=== PATIENT | male | born 1990 | race Caucasian/White ===

== ENCOUNTER 2018-01-21 21:59 | Emergency (ER) | payer SELFPAY ==
[2018-01-21] MEDS ORDERED: NS 0.9% 1000 ML* 1,000 ML IV ONE (23:13)
[2018-01-21] MEDS ORDERED: Albuterol/Ipratropium NEB.SOL* Albuterol 2.5 MG/Ipratropium 0.5 MG 3 ML INH ONE (23:15)
[2018-01-21] MEDS ORDERED: Ketorolac INJ* 30 MG/ML 1 ML VIAL IV PUSH ONE (23:15)
[2018-01-21 23:38] LABS: ABS Basophils 0.1 10^3/ul (0-0.2); ABS Eosinophils 0.2 10^3/ul (0-0.6); ABS Lymphocytes 2.9 10^3/ul (1.0-4.8); ABS Monocytes 0.9 10^3/ul (0-0.8); ABS Neutrophils 5.8 10^3/ul (1.5-7.7); ABS Nucleated RBC 0 10^3/ul; Eosinophil % 1.5 % (0-6); Hematocrit 45 % (42-52); Hemoglobin 15.2 g/dl (14.0-18.0); Lymphocyte % 29.1 % (25-47); Mean Corpuscular HGB Conc 34 g/dl (31-36); Mean Corpuscular Hemoglobin 29 pg (27-31); Mean Corpuscular Volume 86 fL (80-94); Mean Platelet Volume 7.4 um3 (7.4-10.4); Nucleated Red Blood Cells % 0.1; Platelet Count 243 10^3/ul (150-450); Red Cell Distribution Width 14 % (10.5-15); White Blood Count 9.9 10^3/ul (3.5-10.8)
[2018-01-22] LABS: EGFR Non-African American 112.7 (>60)
[2018-01-22] MEDS ORDERED: predniSONE TAB* 20 MG PO ONE (00:37)
[2018-01-22] MEDS ORDERED: Famotidine TAB* 20 MG PO ONE (00:37)
--- NOTE | 2018-01-22 01:13 | ED ---
Myrtle Amado Emily, scribed for Brenton Pena MD on 01/21/18 at 2315 . HPI Chest Pain - HPI Summary HPI Summary: This patient is a 27 year old M presenting to [facility] with a chief complaint of stabbing left-sided CP radiating to left arm that began at 2100 today. Pt reports onset of pain while at rest. The patient rates the pain 6/10 in severity. Symptoms aggravated by nothing. Symptoms alleviated by nothing. Patient reports palpitations. Patient denies back pain. Pt reports smoking marijuana from a bong earlier today. - History of Current Complaint Chief Complaint: EDChestWallPain Time Seen by Provider: 01/21/18 23:05 Hx Obtained From: Patient Onset/Duration: Started Hours Ago Timing: Constant, Lasting Hours Initial Severity: Moderate Current Severity: Moderate Pain Intensity: 6 Pain Scale Used: 0-10 Numeric Chest Pain Location: Left Lateral Chest Pain Radiates: Yes Chest Pain Radiates To:: Arm Character: Sharp/Stabbing Aggravating Factor(s): Nothing Alleviating Factor(s): Nothing Associated Signs and Symptoms: Negative: Back Pain - Allergy/Home Medications Allergies/Adverse Reactions: Allergies Allergy/AdvReac Type Severity Reaction Status Date / Time No Known Allergies Allergy Verified 01/21/18 22:11 Home Medications: Home Medications Aspirin/Acetaminophen/Caffeine [Excedrin Extra Strength Caplet] 1 each PO Q6HR PRN 01/21/18 [History Confirmed 01/21/18] PMH/Surg Hx/FS Hx/Imm Hx Previously Healthy: Yes Opthamlomology History: Denies: Hx Legally Blind EENT History: Denies: Hx Deafness - Immunization History Date of Tetanus Vaccine: utd Date of Influenza Vaccine: none Infectious Disease History: No Infectious Disease History: Denies: Traveled Outside the [place] in Last 30 Days - Family History Known Family History: Positive: Cardiac Disease, Diabetes - Social History Occupation: Employed Full-time Alcohol Use: Occasionally Substance Use Type: Reports: Marijuana Substance Use Comment - Amount & Last Used: 1/2 gm daily Smoking Status (MU): Heavy Every Day Tobacco Smoker Review of Systems Positive: Palpitations, Chest Pain Positive: Other - Negative back pain All Other Systems Reviewed And Are Negative: Yes Physical Exam - Summary Physical Exam Summary: Appearance: Well appearing, no pain distress Skin: warm, dry, reflects adequate perfusion Head/face: normal Eyes: EOMI, SARA ENT: normal Neck: supple, non-tender Respiratory: breath sounds present, Scattered wheezing without rales and rhonchi. Cardiovascular: pulses symmetrical, Reproducible pain on the left chest with palpitations Abdomen: non-tender, soft but obese Bowel Sounds: present Musculoskeletal: normal, strength/ROM intact Neuro: normal, sensory motor intact, A&Ox3 Triage Information Reviewed: Yes Vital Signs On Initial Exam: Initial Vitals Temp Pulse Resp BP Pulse Ox 98.5 F 108 20 133/67 98 01/21/18 22:09 01/21/18 22:09 01/21/18 22:09 01/21/18 22:09 01/21/18 22:09 Vital Signs Reviewed: Yes Diagnostics - Vital Signs Vital Signs Temp Pulse Resp BP Pulse Ox 01/21/18 22:09 98.5 F 108 20 133/67 98 - Laboratory Lab Results: Lab Results 01/21/18 01/21/18 01/21/18 Range/Units 23:28 23:28 23:28 WBC 9.9 (3.5-10.8) 10^3/ul RBC 5.20 (4.0-5.4) 10^6/ul Hgb 15.2 (14.0-18.0) g/dl Hct 45 (42-52) % MCV 86 (80-94) fL MCH 29 (27-31) pg MCHC 34 (31-36) g/dl RDW 14 (10.5-15) % Plt Count 243 (150-450) 10^3/ul MPV 7.4 (7.4-10.4) um3 Neut % (Auto) 58.7 (38-83) % Lymph % (Auto) 29.1 (25-47) % [place] % (Auto) 9.5 H (0-7) % Eos % (Auto) 1.5 (0-6) % Baso % (Auto) 1.2 (0-2) % Absolute Neuts (auto) 5.8 (1.5-7.7) 10^3/ul Absolute Lymphs (auto) 2.9 (1.0-4.8) 10^3/ul Absolute Monos (auto) 0.9 H (0-0.8) 10^3/ul Absolute Eos (auto) 0.2 (0-0.6) 10^3/ul Absolute Basos (auto) 0.1 (0-0.2) 10^3/ul Absolute Nucleated RBC 0 10^3/ul Nucleated RBC % 0.1 D-Dimer, Quantitative < 200 (Less Than 230) ng/mL Sodium 139 (139-145) mmol/L Potassium 4.3 (3.5-5.0) mmol/L Chloride 107 (101-111) mmol/L Carbon Dioxide 25 (22-32) mmol/L Anion Gap 7 (2-11) mmol/L BUN 13 (6-24) mg/dL Creatinine 0.82 (0.67-1.17) mg/dL Est GFR ( Amer) 144.9 (>60) Est GFR (Non-Af Amer) 112.7 (>60) BUN/Creatinine Ratio 15.9 (8-20) Glucose 106 H (70-100) mg/dL Lactic Acid (0.5-2.0) mmol/L Calcium 8.7 (8.6-10.3) mg/dL Total Bilirubin 0.20 (0.2-1.0) mg/dL AST 20 (13-39) U/L ALT 40 (7-52) U/L Alkaline Phosphatase 93 (34-104) U/L Total Creatine Kinase 86 (10-223) U/L Troponin I 0.01 (<0.04) ng/mL Total Protein 6.7 (6.4-8.9) g/dL Albumin 3.9 (3.2-5.2) g/dL Globulin 2.8 (2-4) g/dL Albumin/Globulin Ratio 1.4 (1-3) 01/21/18 Range/Units 23:28 WBC (3.5-10.8) 10^3/ul RBC (4.0-5.4) 10^6/ul Hgb (14.0-18.0) g/dl Hct (42-52) % MCV (80-94) fL MCH (27-31) pg MCHC (31-36) g/dl RDW (10.5-15) % Plt Count (150-450) 10^3/ul MPV (7.4-10.4) um3 Neut % (Auto) (38-83) % Lymph % (Auto) (25-47) % [place] % (Auto) (0-7) % Eos % (Auto) (0-6) % Baso % (Auto) (0-2) % Absolute Neuts (auto) (1.5-7.7) 10^3/ul Absolute Lymphs (auto) (1.0-4.8) 10^3/ul Absolute Monos (auto) (0-0.8) 10^3/ul Absolute Eos (auto) (0-0.6) 10^3/ul Absolute Basos (auto) (0-0.2) 10^3/ul Absolute Nucleated RBC 10^3/ul Nucleated RBC % D-Dimer, Quantitative (Less Than 230) ng/mL Sodium (139-145) mmol/L Potassium (3.5-5.0) mmol/L Chloride (101-111) mmol/L Carbon Dioxide (22-32) mmol/L Anion Gap (2-11) mmol/L BUN (6-24) mg/dL Creatinine (0.67-1.17) mg/dL Est GFR ( Amer) (>60) Est GFR (Non-Af Amer) (>60) BUN/Creatinine Ratio (8-20) Glucose (70-100) mg/dL Lactic Acid 1.0 (0.5-2.0) mmol/L Calcium (8.6-10.3) mg/dL Total Bilirubin (0.2-1.0) mg/dL AST (13-39) U/L ALT (7-52) U/L Alkaline Phosphatase (34-104) U/L Total Creatine Kinase (10-223) U/L Troponin I (<0.04) ng/mL Total Protein (6.4-8.9) g/dL Albumin (3.2-5.2) g/dL Globulin (2-4) g/dL Albumin/Globulin Ratio (1-3) Result Diagrams: 01/21/18 23:28 01/21/18 23:28 Lab Statement: Any lab studies that have been ordered have been reviewed, and results considered in the medical decision making process. - Radiology CXR Radiology Interpretation Completed By: ED Physician - CXR reveals, per ED physician, no acute findings. - EKG 4489 Cardiac Rate: Tachycardia EKG Rhythm: Sinus Rhythm - 121 BPM EKG Interpretation: Nml axis interval. Nml ST Re-Evaluation - Re-Evaluation First Eval Re-Evaluation Time: 00:35 Change: Improved Comment: Pt reports that breathing treatments have improved his chest pain and that symptoms have improved. Pt also reports that breathing treatment has helped him bring up phlegm. Chest Pain Course/Dx - Course Course Of Treatment: Patient with cough, wheezing and left-sided chest pain. Patient was tachycardic as well. D-dimer is negative. O2 saturations are good. His wheezing and cough was broken up with breathing treatments. This made him feel a lot better. He remained tachycardic but this is after albuterol. His resting heart rate was down to 90. He has no fever or infiltrate on chest x-ray. His laboratories are otherwise benign. - Chest Pain Differential Diagnosis/HQI/PQRI: Acute [place], ACS, Angina, Chest Wall, GI Disease, Lower Respiratory Infection, Pulmonary Embolism - Diagnoses Provider Diagnoses: Acute bronchitis, Chest wall pain Discharge - Sign-Out/Discharge Documenting (check all that apply): Discharge/Admit/Transfer - Discharge - Discharge Plan Condition: Good Disposition: HOME Prescriptions: Albuterol HFA INHALER* [Ventolin HFA Inhaler*] 2 puff INH Q4H PRN #1 mdi PRN Reason: cough/shortness of breath guaiFENesin ER TAB [Mucinex*] 600 mg PO BID #20 tab.er predniSONE TAB* [Deltasone TAB*] 50 mg PO DAILY #5 tab Patient Education Materials: Chest Pain (ED), Acute Bronchitis (ED) Forms: *Work Release Referrals: [facility] REFERRAL [Outside] Additional Instructions: Off work. Drink plenty of fluids. Avoid smoking, marijuana. Humidifier while sleeping. Return with fevers, difficulty breathing, increased pain, worse or other concerns as discussed. The documentation as recorded by the Myrtle mcdowell Emily accurately reflects the service I personally performed and the decisions made by me, Brenton Pena MD.
[2018-01-22 01:20] VITALS: BP 163/95
--- NOTE | 2018-01-22 09:41 | RAD ---
INDICATION: Chest pain. COMPARISON: No relevant prior exams available on the [facility] PACS for comparison. TECHNIQUE: Dual energy PA and routine lateral views of the chest were obtained. REPORT: Accounting for superimposed soft tissues with obese body habitus the lungs and pleural spaces are clear. Negative for pneumothorax. The heart, pulmonary vasculature, and mediastinal contours are unremarkable. IMPRESSION: No evidence for acute intrathoracic disease.
== END 2018-01-22 01:22 | disposition home or self-care (01) ==
LOC: ED 21:59
DX: R07.89 Other chest pain (principal); J20.9 Acute bronchitis, unspecified; Z72.0 Tobacco use; Z79.82 Long term (current) use of aspirin
CPT/HCPCS: 36415; 71046; 80053; 82550; 83605; 84484; 85025; 85379; 93005; 96360; 96374; 99284; A9270-GY; J1885; J7512

== ENCOUNTER 2018-04-17 14:28 | Emergency (ER) | payer SELFPAY ==
--- NOTE | 2018-04-17 14:32 | UC ---
Throat Pain/Nasal Robert HPI - HPI Summary HPI Summary: 27 yo male presents with sore throat and feeling more tired than usual. He tells me that his girl friend cheated on him last week and he has been around her since that time. 2 days ago he developed a sore throat and feelings of fatigue - he is concerned he has mono. Has not been taking anything OTC. Denies fever, chills, cough, SOB, chest pain, abdominal pain, n/v. - History of Current Complaint Stated Complaint: SORE THROAT,CONGESTED Time Seen by Provider: 04/17/18 14:32 Hx Obtained From: Patient Onset/Duration: Sudden Onset Severity: Mild Pain Intensity: 4 Pain Scale Used: 0-10 Numeric - Allergies/Home Medications Allergies/Adverse Reactions: Allergies Allergy/AdvReac Type Severity Reaction Status Date / Time No Known Allergies Allergy Verified 04/17/18 14:37 Home Medications: Home Medications NK [No Home Medications Reported] 04/17/18 [History Confirmed 04/17/18] PMH/Surg Hx/FS Hx/Imm Hx - Additional Past Medical History Additional PMH: None Previously Healthy: Yes - Surgical History Surgical History: None - Family History Known Family History: Positive: Cardiac Disease, Diabetes - Social History Lives: With Family Alcohol Use: Occasionally Substance Use Type: Marijuana Substance Use Comment - Amount & Last Used: 1/2 gm daily Smoking Status (MU): Heavy Every Day Tobacco Smoker Review of Systems Constitutional: Negative Skin: Negative Eyes: Negative ENT: Sore Throat Respiratory: Negative Cardiovascular: Negative Gastrointestinal: Negative Neurovascular: Negative Neurological: Negative Psychological: Negative All Other Systems Reviewed And Are Negative: Yes Physical Exam - Summary Physical Exam Summary: GENERAL: NAD. WDWN. No pain distress. SKIN: No rashes, sores, lesions, or open wounds. HEENT: Head: AT/NC Eyes: Conjunctiva clear without inflammation or discharge. Ears: Hearing grossly normal. TMs intact, no bulging, erythema, or edema. Nose: Nasal mucosa pink and moist. NTTP maxillary and frontal sinus. Throat: Posterior oropharynx mild erythema and 3+ tonsillar enlargement. No exudates. Uvula midline. No hoarse voice or muffled voice. NECK: Supple. Nontender. No lymphadenopathy. CHEST: CTAB. No r/r/w. No accessory muscle use. Breathing comfortably and in no distress. CV: RRR. Without m/r/g. Pulses intact. Brisk cap refill. NEURO: Alert. CN II-XII grossly intact. PSYCH: Age appropriate behavior. Triage Information Reviewed: Yes Vital Signs: Vital Signs: Temp Pulse Resp BP Pulse Ox 98.1 F 84 18 139/88 99 04/17/18 14:34 04/17/18 14:34 04/17/18 14:34 04/17/18 14:34 04/17/18 14:34 Laboratory Tests 04/17/18 14:41 Group A Strep Rapid Negative Vital Signs Reviewed: Yes Throat Pain/Nasal Course/Dx - Course Course Of Treatment: POC strep negative. Low suspicion for mono, but pt is requesting testing. I suspect his symptoms are related to a viral tonsillitis. Advised to take ibuprofen for discomfort and f/u if symptoms persist or worsen. - Differential Dx/Diagnosis Provider Diagnoses: Viral tonsillitis Discharge - Sign-Out/Discharge Documenting (check all that apply): Patient Departure - Discharge Plan Condition: Stable Disposition: HOME Patient Education Materials: Tonsillitis (ED) Referrals: No Primary Care Phys,NOPCP [Primary Care Provider] - Additional Instructions: If you develop a fever, shortness of breath, chest pain, new or worsening symptoms - please call your PCP or go to the ED. Your blood pressure was high at todays visit. Please see your primary provider within 4 weeks for recheck and re-evaluation. - Billing Disposition and Condition Condition: STABLE Disposition: Home
[2018-04-17 14:37] VITALS: BP 139/88
== END 2018-04-17 15:09 | disposition home or self-care (01) ==
LOC: UCEAST 14:28
DX: J03.80 Acute tonsillitis due to other specified organisms (principal); B97.89 Other viral agents as the cause of diseases classified elsewhere; F17.210 Nicotine dependence, cigarettes, uncomplicated
CPT/HCPCS: 36415; 86308; 87651; 99211; G0463

== ENCOUNTER 2018-09-22 00:51 | Inpatient (IN) | payer SELFPAY ==
[2018-09-22 01:22] LABS: Urine Appearance Clear; Urine Bilirubin Negative (Negative); Urine Blood Negative (Negative); Urine Color Yellow; Urine Glucose Negative (Negative); Urine Ketones Negative (Negative); Urine Nitrite Negative (Negative); Urine Protein Negative (Negative); Urine Specific Gravity 1.025 (1.010-1.030); Urine Urobilinogen Negative (Negative)
--- NOTE | 2018-09-22 01:24 | ED ---
Psychiatric Complaint - HPI Summary HPI Summary: This patient is a 28 year old M presenting to [facility] with a chief complaint of worsening anxiety and SI since today. Patient reports recent stressful life- changing events, cutting his wrist, and emotional numbness. He cut himself at work today because physical pain hurts less than the emotional pain. He does not feel safe at home. He states that his cheated on him 6 weeks ago and kicked him out of their home. He says he lost his family, home, and best friend. The patient last felt like this when he was 17 and attempted suicide. He was diagnosed with bipolar at age 14 and none of the medications worked, some made him septic. He says that therapy made his bipolar manageable and does not take medication currently. He was brought to the ED by one of his friends. PMHX Bipolar, HTN. SHX tobacco use, marijuana. - History Of Current Complaint Chief Complaint: EDMentalHealth Time Seen by Provider: 09/22/18 01:05 Hx Obtained From: Patient Onset/Duration: Gradual Onset Timing: Constant Character: Depressed, Frustrated Aggravating Factor(s): Recent Stress - separation from Related History: Positive For: Prior Psychiatric Issues - bipolar Has Suicidal: Reports: Thoughts, Has Prior Attempt(s) - age 17 - Risk Factor(s) Completed Suicide Risk Factors: Male, , Past Suicide Attempt - Allergies/Home Medications Allergies/Adverse Reactions: Allergies Allergy/AdvReac Type Severity Reaction Status Date / Time No Known Allergies Allergy Verified 04/17/18 14:37 PMH/Surg Hx/FS Hx/Imm Hx Cardiovascular History: Reports: Hx Hypotension Sensory History: Denies: Hx Legally Blind, Hx Deafness Opthamlomology History: Denies: Hx Legally Blind Psychiatric History: Reports: Hx Bipolar Disorder - Immunization History Date of Tetanus Vaccine: utd Date of Influenza Vaccine: none Infectious Disease History: No Infectious Disease History: Denies: Traveled Outside the [place] in Last 30 Days - Family History Known Family History: Positive: Cardiac Disease, Diabetes - Social History Occupation: Employed Full-time Lives: Alone Alcohol Use: Occasionally Hx Substance Use: Yes Substance Use Type: Reports: Marijuana Substance Use Comment - Amount & Last Used: 1/2 gm daily Hx Tobacco Use: Yes Smoking Status (MU): Heavy Every Day Tobacco Smoker Review of Systems Positive: Other - cuts on his right hand and left wrist Positive: Depressed All Other Systems Reviewed And Are Negative: Yes Physical Exam - Summary Physical Exam Summary: Appearance: Well-appearing, Well-nourished, lying in bed comfortable Skin: Warm, dry, no obvious rash. Superficial abrasion on the left wrist. Abrasions on the right knuckles. Eyes: sclera anicteric, no conjunctival pallor ENT: mucous membranes moist Neck: deferred Respiratory: No signs of respiratory distress Cardiovascular: Appears well perfused, pulses are nml Abdomen: deferred Musculoskeletal: Moving all 4 extremities without obvious discomfort Neurological: Awake and alert, mentation is normal, speech is fluent and appropriate Psychiatric: affect is normal, does not appear anxious or depressed Triage Information Reviewed: Yes Vital Signs On Initial Exam: Initial Vitals Temp Pulse Resp BP Pulse Ox 98.1 F 111 16 161/110 97 09/22/18 00:53 09/22/18 00:53 09/22/18 00:53 09/22/18 00:53 09/22/18 00:53 Vital Signs Reviewed: Yes Diagnostics - Vital Signs Vital Signs Temp Pulse Resp BP Pulse Ox 09/22/18 00:53 98.1 F 111 16 161/110 97 - Laboratory Result Diagrams: 09/22/18 01:26 09/22/18 01:26 Lab Statement: Any lab studies that have been ordered have been reviewed, and results considered in the medical decision making process. Course/Dx - Course Course Of Treatment: This patient is a 28 year old M presenting to [facility] with a chief complaint of worsening anxiety and SI since today. Patient reports recent stressful life-changing events, cutting his wrist, and emotional numbness. He cut himself at work today because physical pain hurts less than the emotional pain. He does not feel safe at home. Test results with no significant abnormalities. Patient will be signed out by Dr. Antunez to Dr. Donovan, awaiting mental health evaluation - Differential Dx/Clinical Impression Provider Diagnosis: Major depression, Adjustment disorder with disturbance of emotion Discharge - Sign-Out/Discharge Documenting (check all that apply): Sign-Out Patient Signing out patient TO: Wei Donovan - Discharge Plan Condition: Improved [place] [place] Disposition and Condition Condition: IMPROVED Dis[place] [facility] [place] Attestation Statements Document Initiated by Scribe: Yes Documenting Scribe: Tony Cam Provider For Whom Scribe is Documenting (Include Credential): Wei Antunez MD Scribe Attestation: I, Tony Cam, scribed for Wei Antunez MD on 09/22/18 at 1840. Scribe Documentation Reviewed: Yes Provider Attestation: The documentation as recorded by the scribe, Tony Cam accurately reflects the service I personally performed and the decisions made by me, Wei Antunez MD Status of Scribe Document: Viewed
[2018-09-22 01:37] LABS: ABS Basophils 0.2 10^3/ul (0-0.2); ABS Eosinophils 0.1 10^3/ul (0-0.6); ABS Lymphocytes 4.4 10^3/ul (1.0-4.8); ABS Nucleated RBC 0 10^3/ul; Eosinophil % 0.7 %; Hematocrit 48 % (42-52); Hemoglobin 15.9 g/dl (14.0-18.0); Lymphocyte % 30.1 %; Mean Corpuscular HGB Conc 33 g/dl (31-36); Mean Corpuscular Hemoglobin 29 pg (27-31); Mean Corpuscular Volume 86 fL (80-94); Mean Platelet Volume 7.5 fL (7.4-10.4); Nucleated Red Blood Cells % 0.1; Platelet Count 262 10^3/ul (150-450); Red Blood Count 5.51 10^6/ul (4.00-5.40); Red Cell Distribution Width 14 % (10.5-15); White Blood Count 14.5 10^3/ul (3.5-10.8)
[2018-09-22 01:40] LABS: Barbiturates Urine Screen None Detected (None Detect); Benzodiazepine Urine Screen None Detected (None Detect); Urine Cannabinoids Screen Presumptive Positive (None Detect)
[2018-09-22 01:53] LABS: ALT 36 U/L (7-52); AST 17 U/L (13-39); Albumin 4.3 g/dL (3.2-5.2); Albumin/Globulin Ratio 1.7 (1-3); Alkaline Phosphatase 111 U/L (34-104); Anion Gap 8 mmol/L (2-11); BUN/Creatinine Ratio 16.5 (8-20); Blood Urea Nitrogen 13 mg/dL (6-24); CO2 Carbon Dioxide 25 mmol/L (22-32); Calcium 9.1 mg/dL (8.6-10.3); Chloride 106 mmol/L (101-111); EGFR Non-African American 116.8 (>60); Globulin 2.6 g/dL (2-4); Glucose 103 mg/dL (70-100); Sodium 139 mmol/L (135-145); Total Protein 6.9 g/dL (6.4-8.9)
[2018-09-22 02:05] LABS: Acetaminophen < 15 mcg/mL; Alcohol < 10 mg/dL (<10); Salicylate < 2.50 mg/dL (<30)
[2018-09-22 02:20] LABS: TSH (Thyroid Stimulating Horm) 2.16 mcIU/mL (0.34-5.60)
--- NOTE | 2018-09-22 07:41 | ED ---
Progress - Progress Note Progress Note: The patient is a sign-out from Dr. Wei Antunez MD, to Dr. Wei Donovan MD , at change of shift at 0700 pending mental health evaluation and disposition. Per mental health plastic cutter, the [place] is [place] [facility] under the care of Dr. Lindsay, psychiatry. The patient agrees with this plan and understands the need for admission. - Consult/PCP Time Called: 04:46 Course/Dx - Course Course Of Treatment: This patient is a 28 year old M presenting to [facility] with a chief complaint of worsening anxiety and SI since today. Patient reports recent stressful life-changing events, cutting his wrist, and emotional numbness. He cut himself at work today because physical pain hurts less than the emotional pain. He does not feel safe at home. Test results with no significant abnormalities. Patient will be signed out by Dr. Antunez to Dr. Donovan, awaiting mental health evaluation - Diagnoses Provider Diagnoses: Major depression Discharge - Sign-Out/Discharge Documenting (check all that apply): Patient Departure - [place] [facility] by Dr. Lindsay. - Discharge Plan Condition: Improved [place] [place] Disposition and Condition Condition: IMPROVED Disposition: [place] [facility] [place] Attestation Statements Document Initiated by Devonibe: Yes Documenting Scribe: Mara Holguin Provider For Whom Santy is Documenting (Include Credential): Dr. Wei Donovan MD Scribe Attestation: Mara Amado scribed for Dr. Wei Donovan MD on 09/22/18 at 1837. Scribe Documentation Reviewed: Yes Provider Attestation: The documentation as recorded by the Mara mcdowell accurately reflects the service I personally performed and the decisions made by me, Dr. Wei Donovan MD Status of Scribtiffany Document: Viewed
[2018-09-22] MEDS ORDERED: Acetaminophen TAB* 325 MG PO PRN (09:27)
[2018-09-22] MEDS ORDERED: Al Hydrox/Mg Hydrox/Simet LIQ* 30 ML UDC PO PRN (09:27)
[2018-09-22] MEDS ORDERED: Propranolol TAB* 40 MG PO ONE (12:00)
[2018-09-22 16:26] VITALS: BP 135/76
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
[2018-09-23] MEDS ORDERED: Vitamin THERAPEUTIC TAB PO SCH (09:00)
== END 2018-09-22 16:15 | disposition home or self-care (01) | DRG 882 ==
LOC: ED 00:51 → BSU 06:45 → ED 07:42
PROVIDERS: ADMIT Psychiatry & Neurology Psychiatry; ATTEND Psychiatry & Neurology Psychiatry
DX: F43.29 Adjustment disorder with other symptoms (principal); Z68.41 Body mass index [BMI] 40.0-44.9, adult; I10 Essential (primary) hypertension; F31.9 Bipolar disorder, unspecified; S60.812A Abrasion of left wrist, initial encounter; S60.511A Abrasion of right hand, initial encounter; E66.9 Obesity, unspecified; F43.10 Post-traumatic stress disorder, unspecified; X78.8XXA Intentional self-harm by other sharp object, initial encounter; F17.210 Nicotine dependence, cigarettes, uncomplicated; Z62.810 Personal history of physical and sexual abuse in childhood; Z81.8 Family history of other mental and behavioral disorders; Z91.5 Personal history of self-harm; Z82.49 Family history of ischemic heart disease and other diseases of the circulatory system; Z83.3 Family history of diabetes mellitus; Y92.89 Other specified places as the place of occurrence of the external cause; Z72.89 Other problems related to lifestyle; Z81.1 Family history of alcohol abuse and dependence
CPT/HCPCS: 36415; 80053; 80307; 80320; 80329; 81003; 84443; 85025; 99285; A9270-GY; G0480

== ENCOUNTER 2019-01-19 02:14 | Emergency (ER) | payer SELFPAY ==
[2019-01-19] MEDS ORDERED: Ibuprofen PED LIQ 100 MG/5 ML UDC PO ONE (02:49)
[2019-01-19] MEDS ORDERED: Dexamethasone IV* 4 MG/ML 1 ML (4 MG) IM ONE (02:49)
--- NOTE | 2019-01-19 02:53 | ED ---
Throat Pain/Nasal Congestion - HPI Summary HPI Summary: 28 year old male presents to the emergency department for evaluation of a sore throat. This problem has been present since this morning and is constant. Pt states he is having a hard time swallowing but not breathing. He denies fever, chills, N/V, diarrhea, abdominal pain, cough, chest pain, and SOB. Pt states he had an URI 1-2 weeks ago which is now resolved. - History of Current Complaint Chief Complaint: EDThroatPain Time Seen by Provider: 01/19/19 02:32 Hx Obtained From: Patient - Allergies/Home Medications Allergies/Adverse Reactions: Allergies Allergy/AdvReac Type Severity Reaction Status Date / Time No Known Allergies Allergy Verified 04/17/18 14:37 PMH/Surg Hx/FS Hx/Imm Hx Previously Healthy: Yes Cardiovascular History: Reports: Hx Hypotension Sensory History: Denies: Hx Contacts or Glasses, Hx Legally Blind, Hx Deafness, Hx Hearing Aid Opthamlomology History: Denies: Hx Contacts or Glasses, Hx Legally Blind Psychiatric History: Reports: Hx Bipolar Disorder - Immunization History Date of Tetanus Vaccine: utd Date of Influenza Vaccine: none Infectious Disease History: No Infectious Disease History: Denies: Traveled Outside the [place] in Last 30 Days - Family History Known Family History: Positive: Cardiac Disease, Diabetes - Social History Alcohol Use: Occasionally Hx Substance Use: Yes Substance Use Type: Reports: Marijuana Substance Use Comment - Amount & Last Used: 1/2 gm daily Hx Tobacco Use: Yes Smoking Status (MU): Heavy Every Day Tobacco Smoker Review of Systems Constitutional: Negative Negative: Fever, Chills, Fatigue Eyes: Negative Positive: Sore Throat, Ear Ache. Negative: Nasal Discharge Cardiovascular: Negative Negative: Palpitations, Chest Pain Respiratory: Negative Negative: Shortness Of Breath, Cough Gastrointestinal: Negative Negative: Abdominal Pain, Vomiting, Diarrhea, Nausea Skin: Negative Negative: Rash Neurological: Negative Negative: Headache, Weakness, Paresthesia All Other Systems Reviewed And Are Negative: Yes Physical Exam Triage Information Reviewed: Yes Vital Signs On Initial Exam: Initial Vitals Temp Pulse Resp BP Pulse Ox 99.3 F 110 20 152/97 96 01/19/19 02:24 01/19/19 02:24 01/19/19 02:24 01/19/19 02:24 01/19/19 02:24 Vital Signs Reviewed: Yes Appearance: Positive: Well-Appearing, No Pain Distress, Well-Nourished Skin: Positive: Warm, Skin Color Reflects Adequate Perfusion, Dry Head/Face: Positive: Normal Head/Face Inspection Eyes: Positive: Normal, EOMI, SARA, Conjunctiva Clear ENT: Positive: Hearing grossly normal, Pharyngeal erythema, TMs normal, Tonsillar swelling - red and beefy, Tonsillar exudate, Uvula midline Neck: Positive: Supple, Other: - mild tendrness right neck Respiratory/Lung Sounds: Positive: Clear to Auscultation, Breath Sounds Present Cardiovascular: Positive: Normal, Pulses are Symmetrical in both Upper and Lower Extremities, Tachycardia Abdomen Description: Positive: Nontender, Soft Musculoskeletal: Positive: Normal, Strength/ROM Intact Neurological: Positive: Normal, Sensory/Motor Intact, Alert, Oriented to Person Place, Time Psychiatric: Positive: Normal, Affect/Mood Appropriate Diagnostics - Vital Signs Vital Signs Temp Pulse Resp BP Pulse Ox 01/19/19 02:24 99.3 F 110 20 152/97 96 - Laboratory Lab Statement: Any lab studies that have been ordered have been reviewed, and results considered in the medical decision making process. EENT Course/Dx - Course Course Of Treatment: Pt presents for evaluation of sore throat amd difficulty swallowing. He denies any fever, chills, SOB, chest pain, abdominal pain, N/V, and cough. His exam reveals red, beefy, and swollen tonsills with right anterior neck tenderness. Rapid strep performed was negative. Pt given IM decadron injection and ibuprofen today. He was prescribed a course of oral decadron as well. Pt recommended OTC ibuprofen as needed for pain. He was instructed to return should he experience any fever, trouble breathing, or worsening pain. Assessment/Plan: Patient was seen in conjunction with the physician bacteriology research assistant student. All history and physical findings and medical decision making his mind. Recent URI with throat discomfort. Exudative tonsils with enlargement. No abscess. Treated with steroids after negative strep test. Continue outpatient. - Differential Diagnoses Differential Diagnoses: Peritonsillar Ulcer, Pharyngitis, Tonsilitis - Diagnoses Provider Diagnoses: Tonsillitis Discharge - Sign-Out/Discharge Documenting (check all that apply): Patient Departure Patient Received Moderate/Deep Sedation with Procedure: No - Discharge Plan Condition: Stable Disposition: HOME Prescriptions: Dexamethasone TAB* [Decadron TAB*] 8 mg PO DAILY #8 tab Patient Education Materials: Tonsillitis (ED) Forms: *Work Release Referrals: [facility] [Outside] [facility] [place]Outside] Additional Instructions: Children's ibuprofen or Tylenol in liquid form will help discomfort. Return with fever, unable to swallow, worse, new symptoms or other concerns. - Billing Disposition and Condition Condition: STABLE Disposition: Home - Attestation Statements Document Initiated by Scribe: No
[2019-01-19 03:04] LABS: Rapid Strep Molecular Negative (Negative)
[2019-01-19 03:48] VITALS: BP 145/80
== END 2019-01-19 03:40 | disposition home or self-care (01) ==
LOC: ED 02:14
DX: J03.90 Acute tonsillitis, unspecified (principal); I95.9 Hypotension, unspecified; F31.9 Bipolar disorder, unspecified
CPT/HCPCS: 87651; 96372; 99282; J1100